=== PATIENT | female | born 1985 | race African-American/Black ===

== ENCOUNTER 2016-09-17 15:44 | Outpatient (CLI) | payer BC | END 2016-09-17 15:45 | disposition home or self-care (01) | LOC: MADLABBHPM 15:44 | PROVIDERS: ATTEND Family Medicine | DX: N30.00 Acute cystitis without hematuria (principal) | CPT/HCPCS: 87077; 87086; 87186 ==

== ENCOUNTER 2021-06-03 18:40 | Emergency (ER) | payer BC ==
[2021-06-03] MEDS ORDERED: Ibuprofen 800 MG TAB ONE (19:10)
[2021-06-03] MEDS ORDERED: Sodium Chloride 0.9% 1,000 ML ONE (19:10)
[2021-06-03] MEDS ORDERED: Acetaminophen 500 MG TAB ONE (19:10)
[2021-06-03] MEDS ORDERED: Ondansetron PF 4 MG/2 ML Vial ONE (19:10)
[2021-06-03 19:19] LABS: #Basophils 0.2 thou/uL (0.0-0.2); #Lymphocytes 2.3 thou/uL (1.20-3.40); #Monocytes 1.3 thou/uL (0.11-0.59); #Neutrophils 6.7 thou/uL (1.40-6.50); %Basophils 2.2 % (0.0-1.0); %Lymphocytes 21.7 % (21.0-51.0); %Monocytes 12.7 % (0.0-10.0); %Neutrophils 63.4 % (42.0-75.0); Hemoglobin 15.1 g/dL (12.0-16.0); Mean Corpuscular HGB CONC 31.3 g/dL (32.0-36.0); Mean Corpuscular Hemoglobin 25.2 pg (27.0-31.0); Mean Corpuscular Volume 80.4 fL (78.0-98.0); Mean Platelet Volume 6.9 fL (7.4-10.4); Platelet Count 287 thou/uL (130-400); Red Blood Cell (RBC) Count 6.01 mill/uL (4.20-5.40); White Blood Cell (WBC) Count 10.6 thou/uL (4.8-10.8)
[2021-06-03 19:35] LABS: ALT (SGPT) 61 U/L (8-55); AST (SGOT) 63 U/L (5-34); Albumin 4.2 g/dL (3.5-5.0); Alkaline Phosphatase 85 U/L (40-110); Anion Gap 21 mmol/L (10-20); BUN (Urea Nitrogen) 16 mg/dL (7.0-18.7); Bilirubin, Total 0.9 mg/dL (0.2-1.2); Calc. Creatinine Clearance 0 mL/min (70-130); Calcium 10.2 mg/dL (7.8-10.44); Carbon Dioxide 17 mmol/L (22-29); Chloride 100 mmol/L (98-107); Globulin 4.5 g/dL (2.4-3.5); Glucose 97 mg/dL (70-105); Lipase 23 U/L (8-78); Potassium 3.7 mmol/L (3.5-5.1); Protein, Total 8.7 g/dL (6.0-8.3); Sodium 134 mmol/L (136-145)
[2021-06-03 20:10] LABS: Bilirubin Moderate (Negative); Blood, Urine Moderate (Negative); Clarity Clear (Clear); Glucose, Urine (Dipstick) Negative (Negative); Ketone, Urine 80 mg/dL (Negative); Leukocyte Trace (Negative); Nitrite Negative (Negative); Protein, Urine (Dipstick) 100 mg/dL (Neg-Trace); Specific Gravity, Urine 1.025 (1.005-1.030)
[2021-06-03 20:15] LABS: Bacteria/HPF 1+ HPF (None Seen); RBC/HPF 0-3 HPF (0-3)
== END 2021-06-03 20:30 | disposition home or self-care (01) ==
LOC: MADERS 18:40
DX: A08.4 Viral intestinal infection, unspecified (principal)
CPT/HCPCS: 71046; 80053; 81003; 81015; 83605; 83690; 85025; 87086; 96374; J2405; J7050

== ENCOUNTER 2021-06-23 13:07 | Outpatient (CLI) | payer BC | END 2021-06-23 13:08 | disposition home or self-care (01) | LOC: MADCT 13:07 | PROVIDERS: ATTEND Family Medicine | DX: R51.9 Headache, unspecified (principal); Z82.49 Family history of ischemic heart disease and other diseases of the circulatory system | CPT/HCPCS: 70450 ==